=== PATIENT | male | born 1960 | race Caucasian/White ===

== ENCOUNTER 2016-10-24 14:23 | Emergency (ER) | payer BC, OTHER ==
[~2016-10-24] VITALS: Ht 185.4 cm; Wt 88.9 kg
[~2016-10-24 14:23] MED LIST: HYDR-3240 PO; NONE PER PATIENT
[2016-10-24 14:37] VITALS: BP 148/86
== END 2016-10-24 17:16 | disposition home or self-care (01) ==
LOC: ED 15:53
DX: S16.1XXA Strain of muscle, fascia and tendon at neck level, initial encounter (principal); S13.4XXA Sprain of ligaments of cervical spine, initial encounter; S00.81XA Abrasion of other part of head, initial encounter; Z88.7 Allergy status to serum and vaccine; V19.40XA Pedal cycle driver injured in collision with unspecified motor vehicles in traffic accident, initial encounter; Y93.55 Activity, bike riding; Y99.8 Other external cause status; Y92.488 Other paved roadways as the place of occurrence of the external cause
CPT/HCPCS: 70450; 72072; 72125